=== PATIENT | female | born 1930 | race Caucasian/White ===

== ENCOUNTER 2017-05-06 09:35 | Emergency (ER) | payer BC ==
[2017-05-06 09:49] VITALS: BP 147/83; PULSE 73; TEMP 98.3; BMI 21.9
[2017-05-06 10:17] LABS: BASOPHIL 0.4 % (0-2.0); EOSINOPHIL 0.6 % (0-4.5); MCHC 32.6 g/dl (32.0-36.0); MEAN CELL VOLUME 82.7 fl (80-96); NEUTROPHILS 86.4 % (42.8-82.8); PLATELET COUNT 365 K/MM3 (134-434); RDW 14.3 % (11.6-15.6); WHITE BLOOD COUNT 11.2 K/mm3 (4.0-10.8)
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
--- NOTE | 2017-05-06 10:22 | PDOC ---
History of Present Illness - General Chief Complaint: Chest Pain Stated Complaint: chest pain Time Seen by Provider: 05/06/17 09:42 - History of Present Illness Initial Comments: 05/06/17 10:13 86 yo F with HTN, anxiety, and breast ca., who presents with chest pain. Pt. arrives via EMS following an acute episode of chest pain . She reports 15-20 minute episode of diffuse chest pain. Cannot recall character of chest pain or associated symptoms. She states that following a conversation of relocation from her current residence at an assisted living facility into a [facility] ex[facility] nursing care unit she became agitated and overwhelmed. Shortly after she began to experience chest pain. She endorses a brief episode of right hand numbness without tingling following chest pain. Also complains of transient loss of appetite. Pt. was agitated upon encounter and refused to provide further history. Past History - Past Medical History Allergies/Adverse Reactions: Allergies Allergy/AdvReac Type Severity Reaction Status Date / Time No Known Allergies Allergy Verified 02/24/16 11:52 Home Medications: Ambulatory Orders Alprazolam [Xanax] 0.5 mg PO BID #60 tablet 06/23/14 Ascorbic Acid [Vitamin C -] 500 mg PO DAILY #30 tablet 06/23/14 Aspirin [ASA -] 81 mg PO DAILY #30 tab.chew 06/23/14 Lisinopril [Prinivil] 20 mg PO DAILY #30 tablet 06/23/14 Metoprolol Succinate [Toprol XL -] 25 mg PO BID #60 tab.sr.24h 06/23/14 Pantoprazole Sodium [Protonix -] 20 mg PO DAILY #30 tablet.ec 06/23/14 Furosemide [Lasix -] 40 mg PO DAILY 02/24/16 Potassium Chloride 10 meq PO DAILY 02/24/16 Amoxicillin/Potassium Clav [Augmentin 875-125 Tablet] 1 each PO BID #10 tablet 05/06/17 Cancer: Yes (BRRAST CA,RADIATION,OLON) GI Disorders: Yes HTN: Yes - Surgical History Abdominal Surgery: Yes (TUMOR REMOVED, COLON RESECTION) - Psycho/Social/Smoking Cessation Hx Anxiety: No Suicidal Ideation: No Smoking History: Never smoked Have you smoked in the past 12 months: No Hx Alcohol Use: Yes Drug/Substance Use Hx: No Substance Use Type: Alcohol Hx Substance Use Treatment: No Review of Systems - Review of Systems Comments:: 05/06/17 10:23 GENERAL/CONSTITUTIONAL: No fever or chills. No weakness. HEAD, EYES, EARS, NOSE AND THROAT: No change in vision. No ear pain or discharge. No sore throat. CARDIOVASCULAR: + chest pain. No shortness of breath RESPIRATORY: No cough, wheezing, or hemoptysis. GASTROINTESTINAL: No nausea, vomiting, diarrhea or constipation. GENITOURINARY: No dysuria, frequency, or change in urination. MUSCULOSKELETAL: No joint or muscle swelling or pain. No neck or back pain. SKIN: No rash NEUROLOGIC: + numbness. No headache, vertigo, loss of consciousness, or change in strength. ENDOCRINE: No increased thirst. No abnormal weight change HEMATOLOGIC/LYMPHATIC: No anemia, easy bleeding, or history of blood clots. ALLERGIC/IMMUNOLOGIC: No hives or skin allergy. *Physical Exam - Vital Signs Last Vital Signs Temp Pulse Resp BP Pulse Ox 98.3 F 73 18 147/83 100 05/06/17 09:36 05/06/17 09:36 05/06/17 09:36 05/06/17 09:36 05/06/17 09:36 - Physical Exam Comments: 05/06/17 10:25 GENERAL: Awake, alert, and fully oriented, in no acute distress HEAD: No signs of trauma, normocephalic, atraumatic EYES: PERRLA, EOMI, sclera anicteric, conjunctiva clear ENT: Auricles normal inspection, hearing grossly normal, nares patent, oropharynx clear without exudates. Moist mucosa NECK: Normal ROM, supple, no lymphadenopathy, JVD, or masses LUNGS: No distress, speaks full sentences, clear to auscultation bilaterally HEART: Regular rate and rhythm, normal S1 and S2, no murmurs, rubs or gallops, peripheral pulses normal and equal bilaterally. ABDOMEN: Soft, nontender, normoactive bowel sounds. No guarding, no rebound. No masses EXTREMITIES: Normal inspection, Normal range of motion, no edema. No clubbing or cyanosis. NEUROLOGICAL: Cranial nerves II through XII grossly intact. Normal speech, normal gait, no focal sensorimotor deficits SKIN: Warm, Dry, normal turgor, no rashes or lesions noted. Heart Score/ECG Review - Electrocardiogram EKG: Normal - Age Age: >/= 65 - Risk Factors Risk Factors Heart Score: Yes Hx Hypertension Based on the list above the patient has:: 1-2 risk factors - ECG Intrepretation Rhythm: Regular Rhythm - [place]: Normal - P and NM Delta Wave(s) Present: No WPW: No - QRS Poor R Wave Progression: No Q Wave Present: No - ST and T Early Repolarization: No Non Specific ST-T Wave changes: No Flattened T Waves: No Prolonged Q-T Interval: No - ECG Impressions Normal ECG: Yes Non-specific ST Elevation: No Ischemic Changes: No ED Treatment Course - LABORATORY CBC & Chemistry Diagram: 05/06/17 10:23 05/06/17 10:23 Medical Decision Making - Medical Decision Making 05/06/17 10:26 86 yo F with h/o HTN and anxiety who presents with chest pain. Arrived EMS following 15-20 of diffuse chest pain which pt. believes was precipitated by stressful conversation. There is low suspicion of ACS/PR following normal EKG. Pt. does not endorse respiratory complaints and physical exam is unremarkable. Low suspicion for PE or pneumonia. ED course: EKG CBC, CMP, Trop Mg+ PT/INR CXR 05/06/17 13:20 CBC- 11.2 WBC CMP-20 BUN Trop-Neg UA- 3+ Leuk Est 05/06/17 13:21 No acute cardiopulmonary pathology Pt. stable and ready for discharge *DC/Admit/Observation/Transfer Diagnosis at time of Disposition: Agitation Chest pain Qualifiers: Chest pain type: unspecified Qualified Code(s): R07.9 - Chest pain, unspecified - Discharge Dispostion Disposition: HOME Condition at time of disposition: Stable - Prescriptions Prescriptions: Amoxicillin/Potassium Clav [Augmentin 875-125 Tablet] 1 each PO BID #10 tablet - Patient Instructions Printed Discharge Instructions: DI for Atypical Chest Pain Additional Instructions: Return to the emergency department immediately with ANY new, persistent or worsening symptoms. Continue any medications as previously prescribed by your physician. You should follow up with your primary doctor as soon as possible regarding today's emergency department visit. . Please make sure your doctor reviews the results of your emergency evaluation. Thank you for coming to the [facility] today for your care. It was a pleasure to see you today. Please note that your evaluation is INCOMPLETE until you follow-up with your doctor. - Attestations Physician Attestion: 05/06/17 13:23 I, Dr. Corey Cuellar, attest that this document has been prepared under my direction and personally reviewed by me in its entirety. I further attest, that it accurately reflects all work, treatment, procedures and medical decision -making performed by me.
[2017-05-06 10:34] LABS: INR 1.06 (0.82-1.09); PROTHROMBIN TIME (PATIENT) 11.9 SEC (10.2-13.0)
[2017-05-06 10:38] LABS: CPK(DFH) 32 IU/L (26-140)
[2017-05-06 10:39] LABS: ALBUMIN 3.2 g/dl (3.5-5.0); ALK PHOS 63 U/L (32-92); ANION GAP 5 (8-16); BILIRUBIN,TOTAL 0.6 mg/dl (0.2-1.0); CALCIUM 8.3 mg/dl (8.4-10.2); CO2 28 mmol/L (22-28); CREATININE 0.8 mg/dl (0.6-1.3); GLUCOSE,RANDOM 107 mg/dl (74-106); SGOT/AST 12 U/L (10-42); TOT PROT 5.7 g/dl (6.4-8.3)
[2017-05-06 11:33] LABS: TROPONIN I (DFP) < 0.03 ng/ml (0.03-0.50)
[2017-05-06 12:03] LABS: PH,URINE 5.5 (4.5-8); URINE APPEARANCE Cloudy; URINE BILIRUBIN Negative (NEGATIVE); URINE BLOOD 2+ (NEGATIVE); URINE GLUCOSE (UA) Negative (NEGATIVE); URINE KETONE Negative (NEGATIVE); URINE NITRITE Positive (NEGATIVE); URINE UROBILINOGEN 0.2 (0.2-1.0)
[2017-05-06 12:07] LABS: URINE COLOR YELLOW; URINE LEUK ESTERASE 3+ (NEGATIVE); URINE PROTEIN 1+ (NEGATIVE)
[2017-05-06 13:16] LABS: URINE BACTERIA MANY /hpf (NEGATIVE); URINE WBC >50 (3-5)
[2017-05-06 15:12] LABS: SGPT/ALT < 9 U/L (10-40)
--- NOTE | 2017-05-07 15:12 | EKG ---
Test Reason : Blood Pressure : / mmHG Vent. Rate : 065 BPM Atrial Rate : 065 BPM P-R Int : 146 ms QRS Dur : 076 ms QT Int : 446 ms P-R-T Axes : 071 074 062 degrees QTc Int : 463 ms NORMAL SINUS RHYTHM NORMAL ECG WHEN COMPARED WITH ECG OF 21-JUN-2014 08:42, NO SIGNIFICANT CHANGE WAS FOUND Confirmed by MAYRA ARANA MD ([id number]) on 05/07/2017 3:12:14 PM Referred By: TARAN LI Confirmed By:MAYRA ARNAA MD
--- NOTE | 2017-05-08 07:14 | PDOC ---
Patient Follow-up (Call Back) - Post ED Follow - Up Condition at time of discharge: Stable Disposition at time of original discharge: HOME Reason for Call Back: Abnwl. Microbiology (culture results of >100,000 gram neg bacilli from UA on 05/06. No sensitivities reported yet. Pt was started on Augmentin and is taking it as prescribed. She has no urinary complaints or fever and feels better. Dr. Deleon is also aware that she in on an abx. will continue to f/u sensitivities.)
== END 2017-05-06 11:56 | disposition home or self-care (01) ==
LOC: FER 09:35
DX: R45.1 Restlessness and agitation (principal); R07.9 Chest pain, unspecified; I10 Essential (primary) hypertension; Z85.3 Personal history of malignant neoplasm of breast
CPT/HCPCS: 36415; 71010-TC; 80053; 81003; 81015; 82550; 83735; 84484; 85025; 85610; 87086; 87186; 93005; 99283-25

== ENCOUNTER 2017-06-04 10:10 | Emergency (ER) | payer BC ==
--- NOTE | 2017-06-04 10:36 | PDOC ---
History of Present Illness - General Chief Complaint: Injury Stated Complaint: RT ELBOW,RT RIB, RT KNEE PAIN, S/P FALL Time Seen by Provider: 06/04/17 10:35 History Source: Patient Exam Limitations: Dementia - History of Present Illness Initial Comments: 06/04/17 11:00 Pt presents to the ED complaining of R elbow, R knee and R sided rib pain after mechanical fall last night. Patient is able to recall the entire incident and denies LOC. Reports that she did not hit her head. Patient was able to get herself into bed, and has been ambulatory since the incident. Denies abdominal pain or shortness of breath. Past History - Past Medical History Allergies/Adverse Reactions: Allergies Allergy/AdvReac Type Severity Reaction Status Date / Time No Known Allergies Allergy Verified 06/04/17 10:25 Home Medications: Ambulatory Orders Alprazolam [Xanax] 0.5 mg PO BID #60 tablet 06/23/14 Ascorbic Acid [Vitamin C -] 500 mg PO DAILY #30 tablet 06/23/14 Aspirin [ASA -] 81 mg PO DAILY #30 tab.chew 06/23/14 Lisinopril [Prinivil] 20 mg PO DAILY #30 tablet 06/23/14 Metoprolol Succinate [Toprol XL -] 25 mg PO BID #60 tab.sr.24h 06/23/14 Pantoprazole Sodium [Protonix -] 20 mg PO DAILY #30 tablet.ec 06/23/14 Furosemide [Lasix -] 40 mg PO DAILY 02/24/16 Potassium Chloride 10 meq PO DAILY 02/24/16 Cancer: Yes (BRRAST CA,RADIATION,OLON) GI Disorders: Yes HTN: Yes - Surgical History Abdominal Surgery: Yes (TUMOR REMOVED, COLON RESECTION) - Psycho/Social/Smoking Cessation Hx Anxiety: No Suicidal Ideation: No Smoking History: Never smoked Have you smoked in the past 12 months: No Hx Alcohol Use: Yes Drug/Substance Use Hx: No Substance Use Type: Alcohol Hx Substance Use Treatment: No Review of Systems - Review of Systems Constitutional: No: Symptoms Reported, See HPI, Chills, Diaphoresis, Fever, Loss of Appetite, Malaise, Night Sweats, Weakness, Weight Stable, Unintentional Wgt. Loss, Unexplained wgt Loss, Other HEENTM: No: Symptoms Reported, See HPI, Eye Pain, Blurred Vision, Tearing, Recent change in vision, Double Vision, Cataracts, Ear Pain, Ocular Prothesis, Ear Discharge, Nose Pain, Nose Congestion, Tinnitus, Nose Bleeding, Hearing Loss , Throat Pain, Throat Swelling, Mouth Pain, Dental Problems, Difficulty Swallowing, Mouth Swelling, Other Respiratory: No: Cough, Shortness of Breath Cardiac (ROS): Yes: Other. No: Chest Pain ABD/GI: No: Nausea, Vomiting, Indigestion Musculoskeletal: No: Back Pain, Joint Pain, Muscle Pain, Neck Pain *Physical Exam - Physical Exam General Appearance: Yes: Thin. No: Apparent Distress Neck: positive: Trachea midline, Carotid bruit. negative: Tender, Supple, Decreased range of motion, Rigidity, Tender midline Respiratory/Chest: positive: Lungs Clear, Normal Breath Sounds. negative: Chest Tender, Respiratory Distress, Rapid RR (no bruising or tenderness of chest wall), Crackles, Rales, Rhonchi, Stridor, Wheezing Cardiovascular: positive: Regular Rhythm, Regular Rate, S1, S2 Gastrointestinal/Abdominal: positive: Normal Bowel Sounds. negative: Tender, Flat, Soft, Organomegaly, Pulsatile Mass, Increased Bowel Sounds, Decreased BS, Protuberent, Distended, Guarding, Rebound, Tenderness, Hernia, Mass, Hepatomegaly, Spleenomegaly, Other Musculoskeletal: positive: Normal Inspection. negative: CVA Tenderness, CVA Tenderness (R), CVA Tenderness (L), Decreased Range of Motion, Muscle Spasm, Vertebral Tenderness, Other (full ROM with no tenderness or deformity at R elbow and knee) Extremity: positive: Normal Range of Motion Integumentary: positive: Normal Color Neurologic: positive: comfort filler II-XII NML intact, Alert, Motor Strength 5/5 Medical Decision Making - Medical Decision Making 06/04/17 11:13 Pt presents to the ED after mechanical trip and fall complaining of R elbow, R knee and R sided rib pain. No signs of head trauma, patient denies hitting her head or LOC. Will check xray to rule out fracture, likely discharge home if negative. *DC/Admit/Observation/Transfer Diagnosis at time of Disposition: Contusion of knee Qualifiers: Encounter type: initial encounter Laterality: right Qualified Code(s): S80.01XA - Contusion of right knee, initial encounter - Discharge Dispostion Disposition: HOME Condition at time of disposition: Good Admit: No - Patient Instructions Printed Discharge Instructions: DI for Knee Pain Additional Instructions: return to the ED for new or changing symptoms, especially severe pain in the knee or elbow, severe chest pain or shortness of breath. Follow up with your doctor.
[2017-06-04 10:45] VITALS: BP 133/64; PULSE 75; TEMP 98.2; BMI 19.5
== END 2017-06-04 12:05 | disposition home or self-care (01) ==
LOC: FER 10:10
DX: S80.01XA Contusion of right knee, initial encounter (principal); W18.39XA Other fall on same level, initial encounter; Y93.89 Activity, other specified; Y92.9 Unspecified place or not applicable; Z85.3 Personal history of malignant neoplasm of breast; I10 Essential (primary) hypertension; K92.9 Disease of digestive system, unspecified
CPT/HCPCS: 71010-TC; 73070-TC-RT; 73562-TC-RT; 99281-25

== ENCOUNTER 2017-09-27 09:20 | Inpatient (IN) | payer BC, OTHER ==
--- NOTE | 2017-09-27 09:21 | PDOC ---
History of Present Illness - General Chief Complaint: Hematuria Stated Complaint: BIBA HEMATURIA Time Seen by Provider: 09/27/17 09:21 - History of Present Illness Initial Comments: 09/27/17 09:48 86yo F hx uterine prolapse, HTN, HL, colon ca s/p resection, anxiety presents after an episode of hematuria this morning. Pt had recent UTI a few weeks ago and was given augmentin. Pt's aid reports urine is red with some clots. Pt has not complaints, denies dysuria, frequency, abd pain, fevers, chills. AId also reports patient has been increasingly confused over the last week and was agitated when EMS arrived today which is unlike her. No CP, SOB, headache, focal weakness or numbness, LE edema. Past History - Past Medical History Allergies/Adverse Reactions: Allergies Allergy/AdvReac Type Severity Reaction Status Date / Time No Known Allergies Allergy Verified 09/27/17 09:22 Home Medications: Ambulatory Orders Aspirin [ASA -] 81 mg PO DAILY #30 tab.chew 06/23/14 Lisinopril [Prinivil] 20 mg PO DAILY #30 tablet 06/23/14 Metoprolol Succinate [Toprol XL -] 25 mg PO BID #60 tab.sr.24h 06/23/14 Cyanocobalamin [Vitamin B12 -] 1,000 mcg PO DAILY 08/20/17 Levothyroxine [Synthroid -] 50 mcg PO DAILY 08/20/17 Mirtazapine 15 mg PO HS 08/20/17 Acetaminophen [Tylenol -] 500 mg PO TID 09/27/17 Amoxicillin/Potassium Clav [Augmentin 875-125 Tablet] 1 each PO BID 09/27/17 Docusate Sodium [Colace -] 100 mg PO HS 09/27/17 Ergocalciferol (Vitamin D2) [Vitamin D2] 50,000 unit PO WEEKLY 09/27/17 Furosemide 20 mg PO Q48H 09/27/17 Olanzapine 5 mg PO BID 09/27/17 Olanzapine Zydis [Zyprexa Zydis -] 5 mg PO Q8H PRN 09/27/17 Polyethylene Glycol 3350 [Miralax (For Daily Use) -] 17 gm PO DAILY 09/27/17 Cancer: Yes (BREAST CA,RADIATION,OLON) COPD: No GI Disorders: Yes Disorders: Yes (UTERINE PROLAPSE, CYSTOCELE) HTN: Yes Psychiatric Problems: Yes (ANXIETY) Seizures: Yes (HYPOTHYROID) - Surgical History Abdominal Surgery: Yes (TUMOR REMOVED, COLON RESECTION) - Suicide/Smoking/Psychosocial Hx Smoking History: Never smoked Have you smoked in the past 12 months: No Hx Alcohol Use: No Drug/Substance Use Hx: No Substance Use Type: Alcohol Hx Substance Use Treatment: No Review of Systems - Review of Systems Comments:: 09/27/17 09:51 GENERAL/CONSTITUTIONAL: No fever or chills. No weakness. +confusion HEAD, EYES, EARS, NOSE AND THROAT: No change in vision. No ear pain or discharge. No sore throat. GASTROINTESTINAL: No nausea, vomiting, diarrhea or constipation. GENITOURINARY: No dysuria, frequency, or change in urination. +hematuria CARDIOVASCULAR: No chest pain or shortness of breath. RESPIRATORY: No cough, wheezing, or hemoptysis. MUSCULOSKELETAL: No joint or muscle swelling or pain. No neck or back pain. SKIN: No rash NEUROLOGIC: No headache, vertigo, loss of consciousness, or change in strength/ sensation. ENDOCRINE: No increased thirst. No abnormal weight change. HEMATOLOGIC/LYMPHATIC: No anemia, easy bleeding, or history of blood clots. ALLERGIC/IMMUNOLOGIC: No hives or skin allergy. *Physical Exam - Physical Exam Comments: 09/27/17 09:54 GENERAL: Awake, alert, in no acute distress HEAD: No signs of trauma EYES: PERRLA, EOMI, sclera anicteric, conjunctiva clear ENT: Auricles normal inspection, hearing grossly normal, nares patent, oropharynx clear without exudates. Moist mucosa NECK: Normal ROM, supple, no lymphadenopathy, JVD, or masses LUNGS: Breath sounds equal, clear to auscultation bilaterally. No wheezes, and no crackles HEART: Regular rate and rhythm, normal S1 and S2, no murmurs, rubs or gallops ABDOMEN: Soft, nontender, normoactive bowel sounds. No guarding, no rebound. No masses. No CVAT : +uterine prolapse, +bright red blood from mauro catheter with some clots EXTREMITIES: Normal range of motion, no edema. No clubbing or cyanosis. No cords, erythema, or tenderness NEUROLOGICAL: Normal speech, cranial nerves grossly intact, negative pronator drift, 5/5 strength in all 4 extremities, normal sensation to light touch in all 4 extremities, normal cerebellar exam SKIN: Warm, Dry, normal turgor, no rashes or lesions noted. ED Treatment Course - LABORATORY CBC & Chemistry Diagram: 09/27/17 10:00 09/27/17 10:00 Medical Decision Making - Medical Decision Making 09/27/17 10:17 86-year-old female presents with painless gross hematuria with clots. Differential includes hemorrhagic cystitis versus malignancy. Blood pressure is a touch low (96/70) in the emergency department concerning for clinical anemia. Since patient's aide also reports a change in mental status over the last week, will obtain CT scan of her head. Plan: -labs -bladder US -CTH -discuss with Dr. Deleon 09/27/17 11:32 Labs remarkable for leukocytosis to 18 with a neutrophil predominance. Creatinine is also up to 1.7 with BUNs in the 60s consistent with acute renal failure as the patient's previous creatinines are within normal limits. Her potassium is up to 5.6 likely secondary to her acute renal failure. CT scan of the head is negative for acute pathology. Her urinalysis was unable to be analyzed due to the gross hematuria however given the recent diagnosis of UTI over the weekend and covered with Augmentin at that point, I did broaden her coverage to ceftriaxone at this time. I reviewed the patient's previous microbiology and found that she has only had pansensitive Klebsiella in the past in our system. I discussed the case with her PMD Dr. Deleon and the patient will be admitted for further workup and management of her hematuria. She is currently pending an ultrasound of the bladder. Since the patient's bladder must be full for the ultrasound, we have clamped her Mauro for now and will give her a 500 mL bolus to allow filling of her bladder for the study. 09/27/17 14:37 Case discussed in detail with admitting physician Dr. Deleon including history , physical exam and ancillary studies. Admitting physician has assumed care for the patient, will follow all pending diagnostics and will complete the evaluation and treatment. *DC/Admit/Observation/Transfer Diagnosis at time of Disposition: Hematuria - Discharge Dispostion Condition at time of disposition: Stable Admit: Yes - Referrals - Patient Instructions - Post Discharge Activity - Attestations Physician Attestion: 09/27/17 11:35 I, Dr. Tirso Hall MD, attest that this document has been prepared under my direction and personally reviewed by me in its entirety. I further attest, that it accurately reflects all work, treatment, procedures and medical decision -making performed by me.
[2017-09-27 10:32] LABS: URINE APPEARANCE CLOUDY; URINE COLOR RED
[2017-09-27 10:41] LABS: ACTIVATED PTT 25.8 SECONDS (24.0-38.9)
[2017-09-27 10:42] LABS: ALK PHOS 62 U/L (32-92); ANION GAP 7 (8-16); BILIRUBIN,TOTAL 0.3 mg/dl (0.2-1.0); CALCIUM 8.6 mg/dl (8.4-10.2); CO2 22 mmol/L (22-28); CREATININE 1.7 mg/dl (0.6-1.3); GLUCOSE,RANDOM 109 mg/dl (74-106); MAGNESIUM 2.3 mg/dL (1.8-2.4); SGOT/AST 8 U/L (10-42); TOT PROT 6.3 g/dl (6.4-8.3)
[2017-09-27 10:44] LABS: MCH 27.3 pg (25.7-33.7); MCHC 32.9 g/dl (32.0-36.0); MEAN PLT VOLUME 9.6 fl (7.5-11.1); PLATELET COUNT 430 K/MM3 (134-434); RDW 15.8 % (11.6-15.6); WHITE BLOOD COUNT 17.8 K/mm3 (4.0-10.8)
[2017-09-27 10:45] LABS: INR 1.14 (0.82-1.09); PROTHROMBIN TIME (PATIENT) 12.7 SEC (10.2-13.0)
[2017-09-27 10:55] LABS: URINE RBC >100 /hpf (0-3)
[2017-09-27 10:57] LABS: SGPT/ALT 3 U/L (10-40)
[2017-09-27 11:23] LABS: PLATELET ESTIMATE ADEQUATE
[2017-09-27] MEDS ORDERED: CEFTRIAXONE 1 GM in DEXTROSE 5%-WATER - 50 ML IVPB ONE (11:29)
[2017-09-27] MEDS ORDERED: cefTRIAXone SODIUM 1 GM VIAL ONE (11:34)
[2017-09-27] MEDS ORDERED: SODIUM CHLORIDE 0.9% 1000 ML INFUS.BAG IV ONE (15:15)
--- NOTE | 2017-09-27 18:01 | CON.GU ---
Consult Consult Specialty:: Referred by:: medicine Reason for Consultation:: gross hematuria - History of Present Illness Chief Complaint: gross hematuria History of Present Illness: 86yo F hx uterine prolapse, HTN, HL, colon ca s/p resection, anxiety presents after an episode of hematuria this morning. Pt had recent UTI a few weeks ago and was given augmentin. Pt's aid reports urine is red with some clots. Pt has not complaints, denies dysuria, frequency, abd pain, fevers, chills. AId also reports patient has been increasingly confused over the last week and was agitated when EMS arrived today which is unlike her. No CP, SOB, headache, focal weakness or numbness, LE edema. Patient is unable to give any further history - History Source History Provided By: Medical Record Limitations to Obtaining History: Dementia - Past Medical History ASSISTANT STORE DIRECTOR: Yes: Dementia Cardio/Vascular: Yes: HTN Renal/: Yes: UTI. No: Renal Failure, Renal Inusuff, BPH, Cancer, Hematuria, Hemodialysis, Neurogenic Bladder, Renal Calculi, Other - Past Surgical History Past Surgical History: Yes: Breast Biopsy (lumpectomy and rt in 1995), Colectomy (partial colectomy in 1983 for carcinoma) - Alcohol/Substance Use Hx Alcohol Use: No - Smoking History Smoking history: Never smoked Have you smoked in the past 12 months: No Home Medications - Allergies Allergies/Adverse Reactions: Allergies Allergy/AdvReac Type Severity Reaction Status Date / Time No Known Allergies Allergy Verified 09/27/17 09:22 - Home Medications Home Medications: Ambulatory Orders Aspirin [ASA -] 81 mg PO DAILY #30 tab.chew 06/23/14 Lisinopril [Prinivil] 20 mg PO DAILY #30 tablet 06/23/14 Metoprolol Succinate [Toprol XL -] 25 mg PO BID #60 tab.sr.24h 06/23/14 Cyanocobalamin [Vitamin B12 -] 1,000 mcg PO DAILY 08/20/17 Levothyroxine [Synthroid -] 50 mcg PO DAILY 08/20/17 Mirtazapine 15 mg PO HS 08/20/17 Acetaminophen [Tylenol -] 500 mg PO TID 09/27/17 Amoxicillin/Potassium Clav [Augmentin 875-125 Tablet] 1 each PO BID 09/27/17 Docusate Sodium [Colace -] 100 mg PO HS 09/27/17 Ergocalciferol (Vitamin D2) [Vitamin D2] 50,000 unit PO WEEKLY 09/27/17 Furosemide 20 mg PO Q48H 09/27/17 Olanzapine 5 mg PO BID 09/27/17 Olanzapine Zydis [Zyprexa Zydis -] 5 mg PO Q8H PRN 09/27/17 Polyethylene Glycol 3350 [Miralax (For Daily Use) -] 17 gm PO DAILY 09/27/17 Review of Systems - Review of Systems Genitourinary: reports: Hematuria Physical Exam- Vital Signs: Vital Signs Temperature 99.2 F 09/27/17 17:56 Pulse Rate 60 09/27/17 17:56 Respiratory Rate 18 09/27/17 17:56 Blood Pressure 114/55 09/27/17 17:56 O2 Sat by Pulse Oximetry (%) 97 09/27/17 17:56 Gastrointestinal: Yes: Soft Renal/: No: Bladder Distention, CVA Tenderness - Left, CVA Tenderness - Right , Zamora Present Labs: CBC, BMP 09/27/17 10:00 09/27/17 10:00 Imaging - Results Ultrasound: Report Reviewed Problem List - Problems (1) Gross hematuria Assessment/Plan: US is normal. Urine culture is pending. hydration. if it presists will need cystoscopy Code(s): R31.0 - GROSS HEMATURIA
[2017-09-27 18:24] VITALS: BMI 16.2
--- NOTE | 2017-09-27 18:50 | HP ---
Admitting History and Physical - Admission Chief Complaint: fall at the [facility] and hematuria History of Present Illness: 86 yo female who is known to me from the community sustained a second fall in 1 week span. The patient had her medication changed recently and was started on Zyprexa and Remeron at night. In ER she was found to have gross hematuria. The patient has history of colon cancer s/p resection. There is no recent Ct scan to monitor any possible recurrence and the patient is very resistant about having any colonoscopies being done. Despite resistance to investigations, upon my inquiry, she confirmed that she would like to be resuscitated History Source: Medical Record, Transfer Record Limitations to Obtaining History: Clinical Condition - Past Medical History DIRECTOR OF MARKET ANALYSIS: Yes: Dementia Cardiovascular: Yes: HTN Gastrointestinal: Yes: Other (hemorrhoidal disease) Renal/: Yes: UTI, Other (uterine prolapse). No: Renal Failure, Renal Inusuff , BPH, Cancer, Hematuria, Hemodialysis, Neurogenic Bladder, Renal Calculi ...: No Psych: Yes: Anxiety - Past Surgical History Past Surgical History: Yes: Breast Biopsy (lumpectomy and rt in 1995), Colectomy (partial colectomy in 1983 for carcinoma) - Smoking History Smoking history: Never smoked Have you smoked in the past 12 months: No - Alcohol/Substance Use Hx Alcohol Use: No - Social History Usual Living Arrangement: Yes: Assisted Living Home Medications - Allergies Allergies/Adverse Reactions: Allergies Allergy/AdvReac Type Severity Reaction Status Date / Time No Known Allergies Allergy Verified 09/27/17 09:22 - Home Medications Home Medications: Ambulatory Orders Aspirin [ASA -] 81 mg PO DAILY #30 tab.chew 06/23/14 Lisinopril [Prinivil] 20 mg PO DAILY #30 tablet 06/23/14 Metoprolol Succinate [Toprol XL -] 25 mg PO BID #60 tab.sr.24h 06/23/14 Cyanocobalamin [Vitamin B12 -] 1,000 mcg PO DAILY 08/20/17 Levothyroxine [Synthroid -] 50 mcg PO DAILY 08/20/17 Mirtazapine 15 mg PO HS 08/20/17 Acetaminophen [Tylenol -] 500 mg PO TID 09/27/17 Amoxicillin/Potassium Clav [Augmentin 875-125 Tablet] 1 each PO BID 09/27/17 Docusate Sodium [Colace -] 100 mg PO HS 09/27/17 Ergocalciferol (Vitamin D2) [Vitamin D2] 50,000 unit PO WEEKLY 09/27/17 Furosemide 20 mg PO Q48H 09/27/17 Olanzapine 5 mg PO BID 09/27/17 Olanzapine Zydis [Zyprexa Zydis -] 5 mg PO Q8H PRN 09/27/17 Polyethylene Glycol 3350 [Miralax (For Daily Use) -] 17 gm PO DAILY 09/27/17 Review of Systems - Review of Systems Constitutional: reports: Lethargy, Weakness, Other (slurred speach) Eyes: reports: No Symptoms HENT: reports: No Symptoms Neck: reports: No Symptoms Cardiovascular: reports: No Symptoms Respiratory: reports: No Symptoms Gastrointestinal: denies: Abdominal Pain, Bloating, Constipation Genitourinary: reports: Hematuria Breasts: reports: No Symptoms Reported Integumentary: reports: No Symptoms Psychiatric: reports: Anxiety Physical Examination Vital Signs: Vital Signs Temperature 99.2 F 09/27/17 17:56 Pulse Rate 60 09/27/17 17:56 Respiratory Rate 18 09/27/17 18:06 Blood Pressure 114/55 09/27/17 17:56 O2 Sat by Pulse Oximetry (%) 97 09/27/17 18:06 Constitutional: Yes: Calm Eyes: Yes: Conjunctiva Clear, EOM Intact HENT: Yes: Atraumatic, Normocephalic Neck: Yes: Supple, Trachea Midline Cardiovascular: Yes: Regular Rate and Rhythm, S1, S2 Respiratory: Yes: Regular, CTA Bilaterally Gastrointestinal: Yes: Normal Bowel Sounds, Soft, Hemorrhoids. No: Hepatomegaly , Splenomegaly ...Rectal Exam: Yes: Hemorrhoids/External Breast(s): Yes: WNL Extremities: Yes: WNL. No: Calf Tenderness Edema: No Peripheral Pulses WNL: Yes Neurological: Yes: Alert, Oriented Psychiatric: Yes: Alert, Oriented Labs: CBC, BMP 09/27/17 10:00 09/27/17 10:00 Imaging - Results Cat Scan: Other (No Ct evidence of intracranial pathology) Other: Other (bladder US: thickening of danyell bladder posterior wall, hydronephrosis of the left kidney, small left kidney cyst) Problem List - Problems (1) Gross hematuria Assessment/Plan: CBC every 8 hours, hold Aspirin, type and cross match, transfuse if necessary Code(s): R31.0 - GROSS HEMATURIA (2) Orthostatic hypotension Assessment/Plan: continue iv fluids gentle hydration Code(s): I95.1 - ORTHOSTATIC HYPOTENSION (3) Other fall on same level, initial encounter Code(s): W18.39XA - OTHER FALL ON SAME LEVEL, INITIAL ENCOUNTER (4) Fall Assessment/Plan: monitor blood pressure Code(s): W19.XXXA - UNSPECIFIED FALL, INITIAL ENCOUNTER Qualifiers: Encounter type: initial encounter Qualified Code(s): W19.XXXA - Unspecified fall, initial encounter (5) HTN (hypertension) Assessment/Plan: continue Lisinopril hold LAsix Code(s): I10 - ESSENTIAL (PRIMARY) HYPERTENSION (6) Hypothyroidism Assessment/Plan: continue Synthroid Code(s): E03.9 - HYPOTHYROIDISM, UNSPECIFIED (7) UTI (urinary tract infection) Assessment/Plan: Ceftriaxone 1 gm iv daily Code(s): N39.0 - URINARY TRACT INFECTION, SITE NOT SPECIFIED
[2017-09-27] MEDS: MIRTAZAPINE 15 MG TABLET (FP) PO SCH (22:16)
[2017-09-27] MEDS: DEXTROSE 5%-0.45% SALINE 1,000 ML IV SCH (22:22)
[2017-09-28] MEDS: LEVOTHYROXINE NA 50 MCG TABLET (FP) PO SCH (06:25)
[2017-09-28 08:21] LABS: BASO % 0.5 % (0-2.0); EOS % 1.9 % (0-4.5); MCHC 32.4 g/dl (32.0-36.0); MEAN CELL VOLUME 83.5 fl (80-96); MEAN PLT VOLUME 9.1 fl (7.5-11.1); NEUT % 86.4 % (42.8-82.8); PLATELET COUNT 412 K/MM3 (134-434); RDW 15.9 % (11.6-15.6); WHITE BLOOD COUNT 13.7 K/mm3 (4.0-10.8)
[2017-09-28 08:36] LABS: ALBUMIN 2.7 g/dl (3.5-5.0); ALK PHOS 53 U/L (32-92); ANION GAP 5 (8-16); CALCIUM 8.2 mg/dl (8.4-10.2); CO2 23 mmol/L (22-28); CREATININE 1.1 mg/dl (0.6-1.3); GLUCOSE,RANDOM 106 mg/dl (74-106); TOT PROT 5.5 g/dl (6.4-8.3)
--- NOTE | 2017-09-28 09:32 | EKG ---
Test Reason : Blood Pressure : / mmHG Vent. Rate : 058 BPM Atrial Rate : 058 BPM P-R Int : 154 ms QRS Dur : 080 ms QT Int : 422 ms P-R-T Axes : 075 052 064 degrees QTc Int : 414 ms SINUS BRADYCARDIA OTHERWISE NORMAL ECG WHEN COMPARED WITH ECG OF 06-MAY-2017 09:51, NON-SPECIFIC CHANGE IN ST SEGMENT IN LATERAL LEADS Confirmed by MAYRA ARANA MD ([id number]) on 09/28/2017 9:32:14 AM Referred By: SOPHY ECHAVARRIA Confirmed By:MAYRA ARANA MD
[2017-09-28] MEDS ORDERED: CEFTRIAXONE 1 GM in DEXTROSE 5%-WATER - 100 ML IVPB SCH (10:00)
[2017-09-28] MEDS: METOPROLOL SUCCINATE 25 MG TAB.SR.24H (FP) PO SCH (10:35)
[2017-09-28] MEDS: CEFTRIAXONE 1 G/50 ML PREMIX 50 ML IVPB SCH (10:36)
[2017-09-28 17:19] LABS: BILIRUBIN,TOTAL 0.3 mg/dl (0.2-1.0); SGOT/AST 6 U/L (10-42); SGPT/ALT 2 U/L (10-40)
--- NOTE | 2017-09-28 17:32 | CON.PSY ---
Psychiatry Consult Chief Complaint: Asked to see this patient an 86 year old female adm. for hematuria and s/p Fall. History of Present Problem: RN input received PCP history appreciated. Medical records, labs and dx work up seen PCP reports that patient has had a sleep problem and her psychiatrist prescribed zyprexa and remeron was increased from 7.5 mgs to15 mgs She sustained a fall and was found to be orthostatic. Since Zyprexa can cause increased sedation and orthostatic hypotension, this medication was discontinued during this hospitalization. Rn reports that patient is not sleeping at nights and is at times agitated. Poor appetite also reported. - Current Medications Current Medications: Active Medications Dextrose/Sodium Chloride (D5-1/2ns -) 1,000 mls @ 42 mls/hr IV ASDIR [facility] Last Admin: 09/27/17 22:22 Dose: 42 mls/hr CEFTRIAXONE 1 G/50 ML PREMIX (Ceftriaxone 1 Gm-D5w Bag) 50 mls @ 100 mls/hr IVPB DAILY [facility] Last Admin: 09/28/17 10:36 Dose: 100 mls/hr Levothyroxine Sodium (Synthroid -) 50 mcg PO DAILY@0700 [facility] Last Admin: 09/28/17 06:25 Dose: 50 mcg Metoprolol Succinate (Toprol Xl -) 25 mg PO DAILY [facility] Last Admin: 09/28/17 10:35 Dose: 25 mg Mirtazapine (Remeron -) 15 mg PO HS [facility] Last Admin: 09/27/17 22:16 Dose: 15 mg - Allergies Allergies: Allergies Allergy/AdvReac Type Severity Reaction Status Date / Time No Known Allergies Allergy Verified 09/27/17 09:22 - Current Mental Status Evaluation Attitude: Uncooperative - Affect Affect: Labile - Mood Mood: Other (neutral) - Speech/Language Receptive: Unable to Receive/Comprehend Spoken Words - Psychomotor Activity Psychomotor Activity: Normal - Thought Process Thought Process: Circumstantial, Loosening of Associations - Thought Content Hallucinations: Absent Delusions: Absent - Self Perception Self Perception: No Impairment - Cognition Attention: Diminished Memory, Immediate Recall: Impaired (Further testing not done due to her state of confusion) Assessment/Plan Patient could not participate with this assessment due to her mental status She is confused and oriented to self only. She is disoriented to time, place and situation. She believes she is at a friend's house. AP Rule out Delirium with underlying Dementia Poor Sleep Agitation and behavioral problems Agree to stop zyprexa Patient may benefit from short term use of short acting benzo while hospitalized for anxiety and to help in sleep induction. Continue remeron at 15 mgs q hs add xanax .5 mgs tid prn
--- NOTE | 2017-09-28 17:46 | PN ---
Progress Note, Physician Chief Complaint: hematuria persisting, dark " merlot" like colored urine patient has extremely poor appetite - Current Medication List Current Medications: Active Medications Alprazolam (Xanax -) 0.5 mg PO Q8H PRN PRN Reason: ANXIETY Dextrose/Sodium Chloride (D5-1/2ns -) 1,000 mls @ 42 mls/hr IV ASDIR [facility] Last Admin: 09/27/17 22:22 Dose: 42 mls/hr CEFTRIAXONE 1 G/50 ML PREMIX (Ceftriaxone 1 Gm-D5w Bag) 50 mls @ 100 mls/hr IVPB DAILY [facility] Last Admin: 09/28/17 10:36 Dose: 100 mls/hr Levothyroxine Sodium (Synthroid -) 50 mcg PO DAILY@0700 [facility] Last Admin: 09/28/17 06:25 Dose: 50 mcg Metoprolol Succinate (Toprol Xl -) 25 mg PO DAILY [facility] Last Admin: 09/28/17 10:35 Dose: 25 mg Mirtazapine (Remeron -) 15 mg PO HS [facility] Last Admin: 09/27/17 22:16 Dose: 15 mg - Objective Vital Signs: Vital Signs Temperature 97.7 F 09/28/17 14:28 Pulse Rate 55 L 09/28/17 14:28 Respiratory Rate 16 09/28/17 14:28 Blood Pressure 97/54 09/28/17 14:28 O2 Sat by Pulse Oximetry (%) 95 09/28/17 14:28 Constitutional: Yes: No Distress, Calm, Pallor Eyes: Yes: Conjunctiva Clear HENT: Yes: Atraumatic, Normocephalic Neck: Yes: Supple, Trachea Midline Cardiovascular: Yes: Regular Rate and Rhythm Respiratory: Yes: Regular, CTA Bilaterally Gastrointestinal: Yes: Normal Bowel Sounds, Soft, Other (umbilical hernia) ...Rectal Exam: Yes: Deferred Musculoskeletal: Yes: Muscle Weakness Extremities: No: Calf Tenderness Edema: Yes Peripheral Pulses WNL: Yes Neurological: Yes: Alert. No: Oriented (not oriented for place) Psychiatric: Yes: Alert Labs: CBC, BMP 09/28/17 07:30 09/28/17 07:30 INR, PTT INR 1.14 (0.82-1.09) 09/27/17 10:00 Problem List - Problems (1) Gross hematuria Assessment/Plan: continue monitoring CBC type and cross match, transfuse if necessary Code(s): R31.0 - GROSS HEMATURIA (2) Orthostatic hypotension Assessment/Plan: continue iv fluids gentle hydration Code(s): I95.1 - ORTHOSTATIC HYPOTENSION (3) Other fall on same level, initial encounter Code(s): W18.39XA - OTHER FALL ON SAME LEVEL, INITIAL ENCOUNTER (4) HTN (hypertension) Assessment/Plan: continue Lisinopril hold LAsix Code(s): I10 - ESSENTIAL (PRIMARY) HYPERTENSION (5) Hypothyroidism Code(s): E03.9 - HYPOTHYROIDISM, UNSPECIFIED (6) UTI (urinary tract infection) Code(s): N39.0 - URINARY TRACT INFECTION, SITE NOT SPECIFIED
[2017-09-28 18:16] LABS: BASO % 0.3 % (0-2.0); EOS % 1.2 % (0-4.5); MCH 27.2 pg (25.7-33.7); MCHC 32.3 g/dl (32.0-36.0); MEAN CELL VOLUME 84.2 fl (80-96); NEUT % 87.4 % (42.8-82.8); PLATELET COUNT 450 K/MM3 (134-434); WHITE BLOOD COUNT 16.1 K/mm3 (4.0-10.8)
[2017-09-28] MEDS: ALPRAZolam 0.25 MG TABLET PO PRN (21:17)
[2017-09-28] MEDS: MIRTAZAPINE 15 MG TABLET (FP) PO SCH (21:17)
[2017-09-29] MEDS: LEVOTHYROXINE NA 50 MCG TABLET (FP) PO SCH (06:10)
[2017-09-29] MEDS: DEXTROSE 5%-0.45% SALINE 1,000 ML IV SCH (06:11)
[2017-09-29 09:23] LABS: MCHC 34.3 g/dl (32.0-36.0); MEAN CELL VOLUME 84.4 fl (80-96); MEAN PLT VOLUME 9.1 fl (7.5-11.1); NEUT % 82.7 % (42.8-82.8); PLATELET COUNT 407 K/MM3 (134-434); RDW 15.4 % (11.6-15.6); WHITE BLOOD COUNT 17.2 K/mm3 (4.0-10.8)
[2017-09-29] MEDS ORDERED: MELATONIN 5 MG TABLETS PO PRN (09:28)
--- NOTE | 2017-09-29 09:38 | PN ---
Progress Note, Physician Chief Complaint: The hematuria continues and the patient is comfortable otherwise, slightly confused in the mornings and more alert in the afternoon hematuria is persisting, with dark " merlot" like colored urine patient has extremely poor appetite - Current Medication List Current Medications: Active Medications Alprazolam (Xanax -) 0.5 mg PO Q8H PRN PRN Reason: ANXIETY Last Admin: 09/28/17 21:17 Dose: 0.5 mg Dextrose/Sodium Chloride (D5-1/2ns -) 1,000 mls @ 42 mls/hr IV ASDIR [facility] Last Admin: 09/29/17 06:11 Dose: 42 mls/hr CEFTRIAXONE 1 G/50 ML PREMIX (Ceftriaxone 1 Gm-D5w Bag) 50 mls @ 100 mls/hr IVPB DAILY [facility] Last Admin: 09/28/17 10:36 Dose: 100 mls/hr Levothyroxine Sodium (Synthroid -) 50 mcg PO DAILY@0700 [facility] Last Admin: 09/29/17 06:10 Dose: 50 mcg Melatonin (Melatonin) 5 mg PO HS PRN PRN Reason: INSOMNIA Metoprolol Succinate (Toprol Xl -) 25 mg PO DAILY [facility] Last Admin: 09/28/17 10:35 Dose: 25 mg Mirtazapine (Remeron -) 7.5 mg PO HS [facility] - Objective Vital Signs: Vital Signs Temperature 97.4 F L 09/29/17 06:26 Pulse Rate 57 L 09/29/17 06:26 Respiratory Rate 19 09/29/17 06:26 Blood Pressure 122/57 09/29/17 06:26 O2 Sat by Pulse Oximetry (%) 100 09/29/17 06:26 Constitutional: Yes: No Distress, Calm Eyes: Yes: Conjunctiva Clear, EOM Intact HENT: Yes: Atraumatic, Normocephalic Neck: Yes: Supple, Trachea Midline Cardiovascular: Yes: Regular Rate and Rhythm, S1, S2 Respiratory: Yes: Regular, CTA Bilaterally Gastrointestinal: Yes: Normal Bowel Sounds, Soft, Abdomen, Obese. No: Hepatomegaly, Splenomegaly Extremities: No: Calf Tenderness Edema: No Peripheral Pulses WNL: Yes Integumentary: Yes: WNL Neurological: Yes: Alert, Oriented Psychiatric: Yes: Alert, Oriented Labs: CBC, BMP 09/29/17 07:30 09/28/17 07:30 INR, PTT INR 1.14 (0.82-1.09) 09/27/17 10:00 Problem List - Problems (1) Gross hematuria Assessment/Plan: continue monitoring CBC type and cross match, transfuse if necessary Code(s): R31.0 - GROSS HEMATURIA (2) Orthostatic hypotension Assessment/Plan: continue iv fluids gentle hydration Code(s): I95.1 - ORTHOSTATIC HYPOTENSION (3) Other fall on same level, initial encounter Code(s): W18.39XA - OTHER FALL ON SAME LEVEL, INITIAL ENCOUNTER (4) Fall Assessment/Plan: monitor blood pressure Code(s): W19.XXXA - UNSPECIFIED FALL, INITIAL ENCOUNTER Qualifiers: Encounter type: initial encounter Qualified Code(s): W19.XXXA - Unspecified fall, initial encounter (5) HTN (hypertension) Assessment/Plan: continue Lisinopril hold LAsix Code(s): I10 - ESSENTIAL (PRIMARY) HYPERTENSION (6) Hypothyroidism Assessment/Plan: continue Synthroid Code(s): E03.9 - HYPOTHYROIDISM, UNSPECIFIED (7) UTI (urinary tract infection) Assessment/Plan: Ceftriaxone 1 gm iv daily Code(s): N39.0 - URINARY TRACT INFECTION, SITE NOT SPECIFIED
[2017-09-29] MEDS: METOPROLOL SUCCINATE 25 MG TAB.SR.24H (FP) PO SCH (10:09)
[2017-09-29] MEDS: CEFTRIAXONE 1 G/50 ML PREMIX 50 ML IVPB SCH (10:09)
--- NOTE | 2017-09-29 12:05 | PROC ---
Procedure Note Procedure: 86 yo female with hematuria, haylee clots. Going for cysto tomorrow. Asked by Dr. Brenner to place her on CBI. 18 Fr 3-way mauro inserted. Balloon inflated with 30cc NS Using a tumi syringe, bladder cleared of all clots CBI started. Tolerated procedure well.
[2017-09-29] MEDS: ALPRAZolam 0.25 MG TABLET PO PRN ×2 (13:18→22:57)
[2017-09-29] MEDS: MIRTAZAPINE 15 MG TABLET (FP) PO SCH (22:56)
[2017-09-29] MEDS ORDERED: LORazepam 2 MG/ML SDV VIAL IVPUSH ONE (23:15)
[2017-09-30] MEDS ORDERED: LIDOCAINE HCL 2% JELLY 10 ML CARTRIDGE ONE (07:18)
[2017-09-30] MEDS ORDERED: MIDAZOLAM HCL 2 MG/2 ML SINGLE DOSE VIAL ONE (07:35)
[2017-09-30] MEDS ORDERED: PROPOFOL 20 ML ONE (07:35)
[2017-09-30] MEDS ORDERED: LIDOCAINE HCL 2% JELLY 10 ML CARTRIDGE TP ONE (07:45)
[2017-09-30] MEDS ORDERED: ONDANSETRON 4 MG/2 ML VIAL IVPUSH PRN (08:12)
[2017-09-30] MEDS ORDERED: oxyCODONE HCL 5 MG TABLET PO PRN (08:12)
[2017-09-30] MEDS ORDERED: PROMETHAZINE HCL 25 MG/1 ML VIAL IVPUSH PRN (08:12)
--- NOTE | 2017-09-30 08:14 | OP ---
Operative Note - Note: Operative Date: 09/30/17 Pre-Operative Diagnosis: gross hematuria Operation: cysotscopy, bladder biopsy and fulguration Findings: erythematous bladder mucosa. cellules and diverticula. urethral caruncle, grade 4 cystocele Post-Operative Diagnosis: Same as Pre-op Surgeon: Naresh Brenner Anesthesia: Fractional Specimens Removed: bladder biopsy Estimated Blood Loss (mls): 0 Drains & Tubes with Location: [address] Operative Report Dictated: Yes
[2017-09-30] MEDS: LEVOTHYROXINE NA 50 MCG TABLET (FP) PO SCH (11:09)
[2017-09-30] MEDS: CEFTRIAXONE 1 G/50 ML PREMIX 50 ML IVPB SCH (11:10)
[2017-09-30] MEDS: METOPROLOL SUCCINATE 25 MG TAB.SR.24H (FP) PO SCH (11:15)
[2017-09-30] MEDS: ALPRAZolam 0.25 MG TABLET PO PRN (20:02)
--- NOTE | 2017-09-30 20:08 | PN ---
Progress Note, Physician Chief Complaint: The patient had cystoscopy today. She tolerated the procedure well, and now she is alert and oriented and requests to eat Pizza. - Current Medication List Current Medications: Active Medications Alprazolam (Xanax -) 0.5 mg PO Q8H PRN PRN Reason: ANXIETY Last Admin: 09/30/17 20:02 Dose: 0.5 mg Fentanyl (Sublimaze Injection -) 25 mcg IVPUSH [id number] PRN PRN Reason: PAIN Dextrose/Sodium Chloride (D5-1/2ns -) 1,000 mls @ 42 mls/hr IV ASDIR [facility] Last Admin: 09/29/17 06:11 Dose: 42 mls/hr CEFTRIAXONE 1 G/50 ML PREMIX (Ceftriaxone 1 Gm-D5w Bag) 50 mls @ 100 mls/hr IVPB DAILY [facility] Last Admin: 09/30/17 11:10 Dose: 100 mls/hr Levothyroxine Sodium (Synthroid -) 50 mcg PO DAILY@0700 [facility] Last Admin: 09/30/17 11:09 Dose: Not Given Melatonin (Melatonin) 5 mg PO HS PRN PRN Reason: INSOMNIA Metoprolol Succinate (Toprol Xl -) 25 mg PO DAILY [facility] Last Admin: 09/30/17 11:15 Dose: Not Given Mirtazapine (Remeron -) 7.5 mg PO HS [facility] Last Admin: 09/29/17 22:56 Dose: Not Given Ondansetron HCl (Zofran Injection) 4 mg IVPUSH Q6H PRN PRN Reason: NAUSEA AND/OR VOMITING Oxycodone HCl (Roxicodone -) 5 mg PO Q4H PRN PRN Reason: MILD PAIN Stop: 10/01/17 08:11 Promethazine HCl (Phenergan Injection -) 12.5 mg IVPUSH Q6H PRN PRN Reason: NAUSEA-FOR RESCUE AFTER 15 MIN - Objective Vital Signs: Vital Signs Temperature 97.9 F 09/30/17 08:45 Pulse Rate 71 09/30/17 17:17 Respiratory Rate 16 09/30/17 19:24 Blood Pressure 107/60 09/30/17 17:17 O2 Sat by Pulse Oximetry (%) 100 09/30/17 19:24 Constitutional: Yes: No Distress, Calm Eyes: Yes: Conjunctiva Clear, EOM Intact HENT: Yes: Atraumatic, Normocephalic Neck: Yes: Supple, Trachea Midline Cardiovascular: Yes: Regular Rate and Rhythm, S1, S2 Respiratory: Yes: Regular, CTA Bilaterally Gastrointestinal: Yes: Normal Bowel Sounds, Soft, Abdomen, Obese. No: Hepatomegaly, Splenomegaly Breast(s): Yes: WNL Extremities: No: Calf Tenderness Edema: No Peripheral Pulses WNL: Yes Neurological: Yes: Alert, Oriented Psychiatric: Yes: Alert, Oriented Labs: CBC, BMP 09/29/17 07:30 09/28/17 07:30 INR, PTT INR 1.14 (0.82-1.09) 09/27/17 10:00 Problem List - Problems (1) Gross hematuria Assessment/Plan: s/p cystoscopy, had biopsy today and now she receives CBI, the patient has no complaints Code(s): R31.0 - GROSS HEMATURIA (2) Orthostatic hypotension Assessment/Plan: continue iv fluids gentle hydration Code(s): I95.1 - ORTHOSTATIC HYPOTENSION (3) Other fall on same level, initial encounter Code(s): W18.39XA - OTHER FALL ON SAME LEVEL, INITIAL ENCOUNTER (4) HTN (hypertension) Assessment/Plan: continue Lisinopril discontinue Lasix Code(s): I10 - ESSENTIAL (PRIMARY) HYPERTENSION (5) Hypothyroidism Assessment/Plan: continue Synthroid Code(s): E03.9 - HYPOTHYROIDISM, UNSPECIFIED (6) UTI (urinary tract infection) Assessment/Plan: Ceftriaxone 1 gm iv daily Code(s): N39.0 - URINARY TRACT INFECTION, SITE NOT SPECIFIED Assessment/Plan 86 yo female admitted with gross hematuria, had today cystoscopy and bladder biopsy.She tolerated well the procedure. Ana Cristina hematuria cleared and now the patient will be kept for observation. She will be discharged in am if no complications/ I discussed with the son and answered all his questions.
[2017-09-30] MEDS: DEXTROSE 5%-0.45% SALINE 1,000 ML IV SCH (20:39)
[2017-09-30] MEDS: MIRTAZAPINE 15 MG TABLET (FP) PO SCH (21:39)
[2017-10-01] MEDS: LEVOTHYROXINE NA 50 MCG TABLET (FP) PO SCH (06:41)
[2017-10-01 08:36] LABS: BASO % 1.1 % (0-2.0); EOS % 2.9 % (0-4.5); MCH 27.2 pg (25.7-33.7); MCHC 32.2 g/dl (32.0-36.0); MEAN CELL VOLUME 84.5 fl (80-96); MEAN PLT VOLUME 9.3 fl (7.5-11.1); NEUT % 84.2 % (42.8-82.8); PLATELET COUNT 408 K/MM3 (134-434); RDW 15.6 % (11.6-15.6)
[2017-10-01 08:39] LABS: ALBUMIN 2.3 g/dl (3.5-5.0); ALK PHOS 54 U/L (32-92); ANION GAP 6 (8-16); BILIRUBIN,TOTAL 0.4 mg/dl (0.2-1.0); CO2 22 mmol/L (22-28); CREATININE 1.2 mg/dl (0.6-1.3); GLUCOSE,RANDOM 102 mg/dl (74-106); SGOT/AST 9 U/L (10-42)
[2017-10-01 08:43] LABS: SGPT/ALT 2 U/L (10-40)
--- NOTE | 2017-10-01 10:35 | OP ---
DATE OF OPERATION: 09/30/2017 PREOPERATIVE DIAGNOSIS: Gross hematuria. POSTOPERATIVE DIAGNOSIS: Gross hematuria. PROCEDURE: Cystoscopy and bladder biopsy. ANESTHESIA: IV sedation, Dr. Berlin Acuña with local anesthesia. FINDINGS: Erythematous bladder. SPECIMEN: Bladder biopsy. DRAINS: A 20-Lao 3-way Zamora catheter. PREOPERATIVE INDICATIONS: The patient is an 86-year-old female who was admitted with gross hematuria. CT scan was unremarkable. The patient comes for cystoscopy. DESCRIPTION OF PROCEDURE: The patient was brought to the OR. Placed on the table in the supine position. Given IV sedation and IV antibiotics. Placed in the modified lithotomy position. The groin was prepped and draped sterilely. A time-out was performed. Of note, the patient has a grade 4 cystocele and a urethral caruncle. Otherwise, her uterus is a bit distended within the vaginal vault and no obvious rectocele. Local anesthesia was infused per urethra. Cystoscopy was performed. Again, the aforementioned urethral caruncle was seen. The bladder itself had trabeculations and small cellules throughout with a longstanding outlet obstruction likely from her grade 4 cystocele. Both UOs were visualized with clear efflux. There was a generalized erythema throughout the bladder. A cold cup biopsy was performed. It was then fulgurated using the loop. Good hemostasis was maintained throughout. Cold cup biopsy was done just posterior to the trigone. Zamora catheter was then replaced, and the patient was woken up. Martha [id number]
[2017-10-01] MEDS: METOPROLOL SUCCINATE 25 MG TAB.SR.24H (FP) PO SCH (11:18)
[2017-10-01] MEDS: FERROUS SO4 325 MG TABLET (FP) PO SCH (11:18)
[2017-10-01] MEDS: MULTIVITAMINS (DAILY MVI) TABLET (FP) PO SCH (11:18)
[2017-10-01] MEDS: CEFTRIAXONE 1 G/50 ML PREMIX 50 ML IVPB SCH (11:18)
[2017-10-01] MEDS: ALPRAZolam 0.25 MG TABLET PO PRN ×2 (15:15→20:11)
[2017-10-01] MEDS ORDERED: LORazepam 2 MG/ML SDV VIAL ONE (15:29)
[2017-10-01] MEDS ORDERED: LORazepam 2 MG/ML SDV VIAL IVPUSH ONE (15:35)
[2017-10-01] MEDS ORDERED: MELATONIN 5 MG TABLETS PO PRN (18:16)
--- NOTE | 2017-10-01 18:27 | PN ---
Progress Note, Physician Chief Complaint: The patient is, S/p cystoscopy. She tolerated the procedure well, and now she is alert and oriented and hungry but refusing out food. She sleeps well at night , has sundown in the afternoon, and is weak with ambulation. - Current Medication List Current Medications: Active Medications Fentanyl (Sublimaze Injection -) 25 mcg IVPUSH [id number] PRN PRN Reason: PAIN Ferrous Sulfate (Feosol -) 325 mg PO DAILY [facility], [facility]–1983 Last Admin: 10/01/17 11:18 Dose: 325 mg Dextrose/Sodium Chloride (D5-1/2ns -) 1,000 mls @ 42 mls/hr IV ASDIR [facility], 1928–1983 Last Admin: 09/30/17 20:39 Dose: 42 mls/hr CEFTRIAXONE 1 G/50 ML PREMIX (Ceftriaxone 1 Gm-D5w Bag) 50 mls @ 100 mls/hr IVPB DAILY [facility], 1928–1983 Last Admin: 10/01/17 11:18 Dose: 100 mls/hr Levothyroxine Sodium (Synthroid -) 50 mcg PO DAILY@0700 [facility], 1928–1983 Last Admin: 10/01/17 06:41 Dose: 50 mcg Melatonin (Melatonin) 10 mg PO HS PRN PRN Reason: INSOMNIA Metoprolol Succinate (Toprol Xl -) 25 mg PO DAILY [facility], 1928–1983 Last Admin: 10/01/17 11:18 Dose: 25 mg Mirtazapine (Remeron -) 7.5 mg PO HS [facility], 1928–1983 Last Admin: 09/30/17 21:39 Dose: 7.5 mg Multivitamins/Minerals/Vitamin C (Tab-A-Vit -) 1 tab PO DAILY [facility], 1928[facility]1983 Last Admin: 10/01/17 11:18 Dose: 1 tab Ondansetron HCl (Zofran Injection) 4 mg IVPUSH Q6H PRN PRN Reason: NAUSEA AND/OR VOMITING Promethazine HCl (Phenergan Injection -) 12.5 mg IVPUSH Q6H PRN PRN Reason: NAUSEA-FOR RESCUE AFTER 15 MIN - Objective Vital Signs: Vital Signs Temperature 98.1 F 10/01/17 17:34 Pulse Rate 82 10/01/17 17:34 Respiratory Rate 19 10/01/17 17:34 Blood Pressure 111/65 10/01/17 17:34 O2 Sat by Pulse Oximetry (%) 100 10/01/17 17:34 Constitutional: Yes: No Distress, Anxious Eyes: Yes: Conjunctiva Clear, EOM Intact HENT: Yes: Atraumatic, Normocephalic Neck: Yes: Supple, Trachea Midline Cardiovascular: Yes: Regular Rate and Rhythm Respiratory: Yes: Regular, CTA Bilaterally Gastrointestinal: Yes: Normal Bowel Sounds, Soft Musculoskeletal: Yes: Back Pain Extremities: No: Calf Tenderness Edema: No Peripheral Pulses WNL: Yes Neurological: Yes: Alert, Oriented (for time, person and place) Psychiatric: Yes: Alert, Oriented Labs: CBC, BMP 10/01/17 08:10 10/01/17 08:10 INR, PTT INR 1.14 (0.82-1.09) 09/27/17 10:00 Problem List - Problems (1) Gross hematuria Code(s): R31.0 - GROSS HEMATURIA (2) Orthostatic hypotension Code(s): I95.1 - ORTHOSTATIC HYPOTENSION (3) Other fall on same level, initial encounter Code(s): W18.39XA - OTHER FALL ON SAME LEVEL, INITIAL ENCOUNTER (4) HTN (hypertension) Code(s): I10 - ESSENTIAL (PRIMARY) HYPERTENSION (5) Hypothyroidism Code(s): E03.9 - HYPOTHYROIDISM, UNSPECIFIED (6) UTI (urinary tract infection) Code(s): N39.0 - URINARY TRACT INFECTION, SITE NOT SPECIFIED
[2017-10-01] MEDS: MIRTAZAPINE 15 MG TABLET (FP) PO SCH (21:31)
[2017-10-02] MEDS: METOPROLOL SUCCINATE 25 MG TAB.SR.24H (FP) PO SCH ×2 (10:00→10:29)
[2017-10-02] MEDS: MULTIVITAMINS (DAILY MVI) TABLET (FP) PO SCH ×2 (10:10→10:29)
[2017-10-02] MEDS: CEFTRIAXONE 1 G/50 ML PREMIX 50 ML IVPB SCH (10:28)
[2017-10-02] MEDS: ALPRAZolam 0.25 MG TABLET PO PRN ×2 (10:29→21:32)
[2017-10-02] MEDS: FERROUS SO4 325 MG TABLET (FP) PO SCH ×2 (10:29→10:31)
--- NOTE | 2017-10-02 17:41 | PN ---
Progress Note, Physician Chief Complaint: The patient is, S/p cystoscopy. She tolerated the procedure well, and now she is alert and oriented and hungry but refusing out food. She sleeps well at night , has sundown in the afternoon, and is weak with ambulation. - Current Medication List Current Medications: Active Medications Alprazolam (Xanax -) 0.5 mg PO Q8H PRN Last Admin: 10/02/17 10:29 Dose: 0.5 mg Fentanyl (Sublimaze Injection -) 25 mcg IVPUSH [id number] PRN PRN Reason: PAIN Ferrous Sulfate (Feosol -) 325 mg PO DAILY [facility] Last Admin: 10/02/17 10:31 Dose: Not Given CEFTRIAXONE 1 G/50 ML PREMIX (Ceftriaxone 1 Gm-D5w Bag) 50 mls @ 100 mls/hr IVPB DAILY [facility] Last Admin: 10/02/17 10:28 Dose: 100 mls/hr Levothyroxine Sodium (Synthroid -) 50 mcg PO DAILY@0700 [facility] Last Admin: 10/01/17 06:41 Dose: 50 mcg Melatonin (Melatonin) 10 mg PO HS PRN PRN Reason: INSOMNIA Metoprolol Succinate (Toprol Xl -) 25 mg PO DAILY [facility] Last Admin: 10/02/17 10:00 Dose: Not Given Mirtazapine (Remeron -) 7.5 mg PO HS [facility] Last Admin: 10/01/17 21:31 Dose: 7.5 mg Multivitamins/Minerals/Vitamin C (Tab-A-Vit -) 1 tab PO DAILY [facility] Last Admin: 10/02/17 10:10 Dose: Not Given Ondansetron HCl (Zofran Injection) 4 mg IVPUSH Q6H PRN PRN Reason: NAUSEA AND/OR VOMITING Promethazine HCl (Phenergan Injection -) 12.5 mg IVPUSH Q6H PRN PRN Reason: NAUSEA-FOR RESCUE AFTER 15 MIN - Objective Vital Signs: Vital Signs Temperature 97.6 F 10/02/17 06:10 Pulse Rate 65 10/02/17 06:10 Respiratory Rate 18 10/02/17 06:10 Blood Pressure 115/72 10/02/17 06:10 O2 Sat by Pulse Oximetry (%) 94 L 10/02/17 06:10 Constitutional: Yes: No Distress, Calm Eyes: Yes: Conjunctiva Clear, EOM Intact HENT: Yes: Atraumatic, Normocephalic Neck: Yes: Supple, Trachea Midline Cardiovascular: Yes: Regular Rate and Rhythm, S1, S2 Respiratory: Yes: Regular, CTA Bilaterally Gastrointestinal: Yes: Normal Bowel Sounds, Soft ...Rectal Exam: Yes: Sphincter Tone Poor, Other (incontinent) Breast(s): Yes: WNL Musculoskeletal: Yes: WNL Extremities: Yes: WNL Edema: No Peripheral Pulses WNL: Yes Integumentary: Yes: Other (pale skin) Wound/Incision: Yes: Clean/Dry Neurological: Yes: Alert, Oriented Psychiatric: Yes: Alert, Oriented Labs: CBC, BMP 10/01/17 08:10 10/01/17 08:10 INR, PTT INR 1.14 (0.82-1.09) 09/27/17 10:00 Problem List - Problems (1) Gross hematuria Assessment/Plan: s/p cystoscopy, had biopsy CBI stopped, the patient has no complaints Code(s): R31.0 - GROSS HEMATURIA (2) Other fall on same level, initial encounter Code(s): W18.39XA - OTHER FALL ON SAME LEVEL, INITIAL ENCOUNTER (3) HTN (hypertension) Assessment/Plan: continue Lisinopril discontinue Lasix Code(s): I10 - ESSENTIAL (PRIMARY) HYPERTENSION (4) Hypothyroidism Assessment/Plan: continue Synthroid Code(s): E03.9 - HYPOTHYROIDISM, UNSPECIFIED (5) UTI (urinary tract infection) Assessment/Plan: Ceftriaxone 1 gm iv daily Code(s): N39.0 - URINARY TRACT INFECTION, SITE NOT SPECIFIED
[2017-10-02] MEDS: MIRTAZAPINE 15 MG TABLET (FP) PO SCH (21:33)
[2017-10-03 05:58] VITALS: BP 135/71; PULSE 85; TEMP 98.6
[2017-10-03] MEDS: LEVOTHYROXINE NA 50 MCG TABLET (FP) PO SCH (06:34)
[2017-10-03] MEDS: FERROUS SO4 325 MG TABLET (FP) PO SCH (09:35)
[2017-10-03] MEDS: CEFTRIAXONE 1 G/50 ML PREMIX 50 ML IVPB SCH (09:36)
[2017-10-03] MEDS: MULTIVITAMINS (DAILY MVI) TABLET (FP) PO SCH (09:36)
[2017-10-03] MEDS: METOPROLOL SUCCINATE 25 MG TAB.SR.24H (FP) PO SCH (09:36)
--- NOTE | 2017-10-04 10:11 | PATH ---
Surgical Pathology Report Patient Name: BRUNA MURRIETA Med. Rec. #: [id number] /Age/Gender: 1930 (Age: 86) / F Account: [id number] Location: [facility] MED-SURG Taken: 09/30/2017 Received: 09/30/2017 Reported: 10/04/2017 Physicians: Martha Núñez M.D. 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 NO CARCINOMA IDENTIFIED. Electronically Signed Jose Alfredo Lorenz M.D. Gross Description Received in formalin, labeled "bladder biopsy" is a orozco, irregular portion of soft tissue measuring 0.2 cm. in greatest dimension. The specimen is submitted in toto in one cassette. 10/03/201710/03/2017
== END 2017-10-03 11:40 | disposition home or self-care (01) | DRG 669 ==
LOC: FER 09:20 → FM/S 17:12
PROVIDERS: ADMIT Internal Medicine; ATTEND Internal Medicine
PROC: 0T5B8ZZ Destruction of Bladder, Via Natural or Artificial Opening Endoscopic (ICD-10-PCS; 2017-09-30)
PROC: 0TBB8ZX Excision of Bladder, Via Natural or Artificial Opening Endoscopic, Diagnostic (ICD-10-PCS; principal; 2017-09-30 07:30)
DX: N17.9 Acute kidney failure, unspecified (principal); N30.01 Acute cystitis with hematuria; F05 Delirium due to known physiological condition; N30.21 Other chronic cystitis with hematuria; I10 Essential (primary) hypertension; E03.9 Hypothyroidism, unspecified; I95.1 Orthostatic hypotension; N13.30 Unspecified hydronephrosis; N36.2 Urethral caruncle
CPT/HCPCS: 36415; 70450-TC; 71010-TC; 76775-TC; 76856-TC; 80053; 81003; 81015; 83735; 85025; 85610; 85730; 86850; 86900; 86901; 87086; 88305-TC; 93005; 94760; 97116-GP; 97162-GP; 99285-25

== ENCOUNTER 2018-03-25 15:33 | Emergency (ER) | payer BC, MEDICARE, OTHER ==
--- NOTE | 2018-03-25 15:36 | PDOC ---
History of Present Illness <Ronen Salazar - Last Filed: 03/25/18 18:41> - General History Source: Patient Exam Limitations: No Limitations - History of Present Illness Initial Comments: 03/25/18 16:28 The patient is a 87 year old female with a significant PMH of HTN, Hyothyroidism , Uterine Prolapse, Anxiety, Colon cancer s/p resection 1983, and breast cancer (s/p radiation) who presents to the emergency department for evaluation of constipation. The patient reports that she has been constipated for 2 days which is unusual for her. She states that she drank something OTC, can't recall the name, for her constipation with no relief. She denies any rectal pain or abdominal pain. Denies any weakness, fatigue or dizziness. The patient denies chest pain, shortness of breath, and headache. Denies fever, chills, nausea, vomit, diarrhea and constipation. Denies dysuria, frequency, urgency and hematuria. Allergies: NKA Past surgical history: None reported. Social history: No reported alcohol, drug, or cigarette use. PCP:Dr. Nj <Carina Santana - Last Filed: 03/25/18 18:46> - General Chief Complaint: Constipation Stated Complaint: CONSTIPATION Time Seen by Provider: 03/25/18 15:35 Past History - Past Medical History Cancer: Yes (BREAST CA,RADIATION,OLON) COPD: No GI Disorders: Yes Disorders: Yes (UTERINE PROLAPSE, CYSTOCELE) HTN: Yes Psychiatric Problems: Yes (ANXIETY) Seizures: Yes (HYPOTHYROID) - Surgical History Abdominal Surgery: Yes (TUMOR REMOVED, COLON RESECTION) - Suicide/Smoking/Psychosocial Hx Smoking History: Never smoked Have you smoked in the past 12 months: No Hx Alcohol Use: No Drug/Substance Use Hx: No Substance Use Type: Alcohol Hx Substance Use Treatment: No <Ronen Salazar - Last Filed: 03/25/18 18:41> <Carina Santana - Last Filed: 03/25/18 18:46> - Past Medical History Allergies/Adverse Reactions: Allergies Allergy/AdvReac Type Severity Reaction Status Date / Time No Known Allergies Allergy Verified 03/25/18 15:35 Home Medications: Ambulatory Orders Aspirin [ASA -] 81 mg PO DAILY #30 tab.chew 06/23/14 Alprazolam [Xanax] 0.25 mg PO BID 7 Days #14 tablet MDD 2 10/02/17 Levothyroxine [Synthroid -] 50 mcg PO DAILY@0700 tablet 10/02/17 Metoprolol Succinate [Toprol XL -] 25 mg PO DAILY tab.sr.24h 10/02/17 Multivitamins [Multivit ([facility] Formulary)] 1 tab PO DAILY 30 Days #30 tab Ascorbate Calcium [Vitamin C] 500 mg PO DAILY 03/25/18 Cyanocobalamin [Vitamin B12 -] 1,000 mcg PO DAILY 03/25/18 Furosemide [Lasix] 40 mg PO DAILY 03/25/18 Lisinopril 20 mg PO DAILY 03/25/18 Mirtazapine [Remeron -] 15 mg PO HS 03/25/18 Potassium Chloride 10 meq PO ASDIR 03/25/18 Review of Systems - Review of Systems Able to Perform ROS?: Yes Comments:: 03/25/18 16:30 ROS (+) Constipation Denies abdominal pain, rectal pain, weakness, fatigue, or dizziness. <Carina Santana - Last Filed: 03/25/18 18:46> *Physical Exam - Vital Signs Last Vital Signs Temp Pulse Resp BP Pulse Ox 98.3 F 62 18 124/80 95 03/25/18 15:36 03/25/18 15:36 03/25/18 15:36 03/25/18 15:36 03/25/18 15:36 - Physical Exam Comments: 03/25/18 16:31 GENERAL: (+) Alert and oriented to self and hospital with no acute pain but very concerned about her constipation. HEAD: Normal with no signs of trauma. EYES: Pupils equal, round and reactive to light, extraocular movements intact, sclera anicteric, conjunctiva clear. LUNGS: Breath sounds equal, clear to auscultation bilaterally. No wheezes, and no crackles. HEART: Regular rate and rhythm, normal S1 and S2 without murmur, rub or gallop. ABDOMEN: Soft, nontender, normoactive bowel sounds. No guarding, no rebound. No masses. RECTUM: (+) External hemorrhoids with no bleeding. (+) Large amount of soft stool. EXTREMITIES: Normal range of motion, no edema. NEUROLOGICAL: Normal speech, normal gait. PSYCH: Normal mood, normal affect. SKIN: Warm, Dry, normal turgor, no rashes or lesions noted. = <Carina Santana - Last Filed: 03/25/18 18:46> ED Treatment Course - LABORATORY CBC & Chemistry Diagram: 03/25/18 16:34 03/25/18 16:34 <MarieRonen Lester - Last Filed: 03/25/18 18:41> - LABORATORY CBC & Chemistry Diagram: 03/25/18 16:34 03/25/18 16:34 <Carina Santana - Last Filed: 03/25/18 18:46> Medical Decision Making - Medical Decision Making 03/25/18 18:41 87-year-old female with history of dementia presents to the emergency department from the [facility]. She has been unable to have a bowel movement for 2 days and is complaining of pressure in her rectal area. There is no abdominal pain, nausea, vomiting or fever. Patient is requesting a laxative to help her have a bowel movement. On examination, the abdomen is soft and nontender without distention. Rectal examination reveals a large quantity of soft brown stool in the rectal vault. Abdominal x-ray shows feces in the rectal vault, but no signs of obstruction. Laboratory studies reviewed. White blood cell count is normal and there are no other significant findings. Patient given saline enema with good results. She had a large bowel movement in the bathroom with the assistance of the nurse. She is feeling better and is stable for discharge back to the [facility]. She resides in the memory unit which has 24-hour care. Laboratory Results - last 24 hr 03/25/18 03/25/18 03/25/18 16:34 16:34 16:34 WBC 9.1 RBC 3.82 Hgb 10.4 L Hct 31.8 L MCV 83.3 MCH 27.1 MCHC 32.6 RDW 14.2 Plt Count 366 MPV 9.0 Absolute Neuts (auto) 7.2 Neutrophils % 78.5 Lymphocytes % 11.3 Monocytes % 7.9 Eosinophils % 1.6 Basophils % 0.7 Sodium 139 Potassium 4.9 Chloride 104 Carbon Dioxide 29 H D Anion Gap 6 L BUN 31 H Creatinine 1.1 Creat Clearance w eGFR 46.98 Random Glucose 81 D Calcium 8.5 Total Bilirubin 0.1 L D AST 11 D ALT 3 L D Alkaline Phosphatase 68 D Total Protein 6.1 L D Albumin 3.3 L D Stool Occult Blood Negative <Ronen Salazar - Last Filed: 03/25/18 18:41> *DC/Admit/Observation/Transfer - Discharge Dispostion Decision to Admit order: No - Attestations Physician Attestion: 03/25/18 18:45 The scribe's documentation has been prepared under my direction and personally reviewed by me in its entirety. I have confirmed that the note above accurately reflects all work, treatment, procedures, and medical decision- making performed by me. <Ronen Salazar - Last Filed: 03/25/18 18:41> - Attestations Scribe Attestion: 03/25/18 16:34 Documentation prepared by Carina Santana, acting as medical staff coordinator for Ronen Salazar MD. <Carina Santana - Last Filed: 03/25/18 18:46> Diagnosis at time of Disposition: Constipation Qualifiers: Constipation type: unspecified constipation type Qualified Code(s): K59.00 - Constipation, unspecified - Discharge Dispostion Disposition: HOME Condition at time of disposition: Fair - Referrals Referrals: Do Deleon MD [Primary Care Provider] - - Patient Instructions Printed Discharge Instructions: DI for Constipation Additional Instructions: Miss Rincon was evaluated today in the emergency department for constipation. Laboratory studies were normal. CBC and chemistries were unremarkable. Abdominal x-ray showed fecal material in the rectal vault but no obstruction. Rectal examination confirmed the same findings, soft, brown, heme-negative stool in the rectal vault, large quantity. Patient was given a saline enema with good results. She is feeling better and is [facility] Follow-up with Dr. Deleon. Return to the emergency department for any severe or progressive symptoms.
[2018-03-25 15:43] VITALS: BP 124/80; PULSE 62; TEMP 98.3
[2018-03-25 15:52] VITALS: BMI 24.3
[2018-03-25 17:33] LABS: BASO % 0.7 % (0-2.0); EOS % 1.6 % (0-4.5); HEMATOCRIT 31.8 % (32.4-45.2); HEMOGLOBIN 10.4 GM/dl (10.7-15.3); LYMPH % 11.3 % (8-40); MCH 27.1 pg (25.7-33.7); MCHC 32.6 g/dl (32.0-36.0); MEAN CELL VOLUME 83.3 fl (80-96); MONO % 7.9 % (3.8-10.2); NEUT % 78.5 % (42.8-82.8); PLATELET COUNT 366 K/MM3 (134-434); RBC 3.82 M/mm3 (3.60-5.2); RDW 14.2 % (11.6-15.6); WHITE BLOOD COUNT 9.1 K/mm3 (4.0-10.8)
[2018-03-25 17:41] LABS: ALBUMIN 3.3 g/dl (3.5-5.0); ALK PHOS 68 U/L (32-92); ANION GAP 6 (8-16); BILIRUBIN,TOTAL 0.1 mg/dl (0.2-1.0); BLOOD UREA NITROGEN 31 mg/dl (7-18); CALCIUM 8.5 mg/dl (8.4-10.2); CHLORIDE 104 mmol/L (98-107); CO2 29 mmol/L (22-28); CREATININE 1.1 mg/dl (0.6-1.3); GLUCOSE,RANDOM 81 mg/dl (74-106); POTASSIUM 4.9 mmol/L (3.5-5.1); SGOT/AST 11 U/L (10-42); SODIUM 139 mmol/L (136-145); TOT PROT 6.1 g/dl (6.4-8.3)
[2018-03-25 17:43] LABS: SGPT/ALT 3 U/L (10-40)
== END 2018-03-25 19:28 | disposition home or self-care (01) ==
LOC: FER 15:33 → SUPCPDRO 15:33 → FER 19:28
DX: K59.00 Constipation, unspecified (principal); F03.90 Unspecified dementia, unspecified severity, without behavioral disturbance, psychotic disturbance, mood disturbance, and anxiety; F41.9 Anxiety disorder, unspecified; E03.9 Hypothyroidism, unspecified; Z85.3 Personal history of malignant neoplasm of breast
CPT/HCPCS: 36415; 74019-TC-FY; 80053; 82272; 85025; 99282-25

== ENCOUNTER 2018-10-23 21:19 | Emergency (ER) | payer OTHER, MEDICARE ==
--- NOTE | 2018-10-23 21:48 | PDOC ---
History of Present Illness <Pattie Zhang - Last Filed: 10/23/18 22:25> - History of Present Illness Initial Comments: 10/23/18 23:16 The patient is an 87 year old female, with a significant past medical history of dementia, uterine prolapse, HTN, hypothyroidism, colon cancer (s/p resection in 1983), anxiety, and breast cancer, who presents to the emergency department today, from [facility], for abnormal potassium labs. Patients lab results were not sent with her to the ED. Patient denies any pain or symptoms at this time. Patients HPI is limited secondary to unwillingness to cooperate, and demands to go home. Per staff at [facility], the pt was sent for an elevated potassium level. They do not know what the level was. The patient denies chest pain, shortness of breath, headache and dizziness. Denies fever, chills, nausea, vomit, diarrhea and constipation. Denies dysuria, frequency, urgency and hematuria. Allergies: NKA Past surgical history: Colon resection Social history: No reported PCP: Dr. Carmona <Tirso Hall - Last Filed: 10/23/18 23:40> - General Chief Complaint: Revisit, Lab Variance Stated Complaint: LAB VARIANCE Time Seen by Provider: 10/23/18 21:21 Past History <Pattie Zhang - Last Filed: 10/23/18 22:25> - Past Medical History Cancer: Yes (BREAST CA,RADIATION,OLON) COPD: No DVT: No GI Disorders: Yes Disorders: Yes (UTERINE PROLAPSE, CYSTOCELE) HTN: Yes Psychiatric Problems: Yes (ANXIETY) Seizures: Yes (HYPOTHYROID) - Surgical History Abdominal Surgery: Yes (TUMOR REMOVED, COLON RESECTION) - Suicide/Smoking/Psychosocial Hx Smoking History: Never smoked Have you smoked in the past 12 months: No Hx Alcohol Use: No Drug/Substance Use Hx: No Substance Use Type: Alcohol Hx Substance Use Treatment: No <Tirso Hall - Last Filed: 10/23/18 23:40> - Past Medical History Allergies/Adverse Reactions: Allergies Allergy/AdvReac Type Severity Reaction Status Date / Time No Known Allergies Allergy Verified 03/25/18 15:35 Home Medications: Ambulatory Orders Aspirin [ASA -] 81 mg PO DAILY #30 tab.chew 06/23/14 Levothyroxine [Synthroid -] 50 mcg PO DAILY@0700 tablet 10/02/17 Multivitamins [Multivit ([facility] Formulary)] 1 tab PO DAILY 30 Days #30 tab Ascorbate Calcium [Vitamin C] 500 mg PO DAILY 03/25/18 Cyanocobalamin [Vitamin B12 -] 1,000 mcg PO DAILY 03/25/18 Mirtazapine [Remeron -] 15 mg PO HS 03/25/18 Potassium Chloride 10 meq PO ASDIR 03/25/18 Docusate Sodium [Colace] 100 mg PO HS 04/02/18 Cholecalciferol (Vitamin D3) [Vitamin D] 2,000 unit PO DAILY 10/23/18 Metoprolol Succinate [Toprol Xl] 25 mg PO DAILY 10/23/18 Review of Systems - Review of Systems Comments:: 10/23/18 23:19 GENERAL/CONSTITUTIONAL: No fever or chills. No weakness. HEAD, EYES, EARS, NOSE AND THROAT: No change in vision. No ear pain or discharge. No sore throat. GASTROINTESTINAL: No nausea, vomiting, diarrhea or constipation. GENITOURINARY: No dysuria, frequency, or change in urination. CARDIOVASCULAR: No chest pain or shortness of breath. RESPIRATORY: No cough, wheezing, or hemoptysis. MUSCULOSKELETAL: No joint or muscle swelling or pain. No neck or back pain. SKIN: No rash NEUROLOGIC: No headache, vertigo, loss of consciousness, or change in strength/ sensation. ENDOCRINE: No increased thirst. No abnormal weight change. HEMATOLOGIC/LYMPHATIC: No anemia, easy bleeding, or history of blood clots. ALLERGIC/IMMUNOLOGIC: No hives or skin allergy. <Tirso Hall - Last Filed: 10/23/18 23:40> *Physical Exam - Physical Exam Comments: 10/23/18 23:19 GENERAL: Awake, alert, oriented to name. Uncooperative but redirectable HEAD: No signs of trauma EYES: Sclera anicteric, conjunctiva clear ENT: Hearing grossly normal, nares patent, oropharynx clear without exudates. Moist mucosa NECK: Normal ROM, supple, no lymphadenopathy, JVD, or masses LUNGS: Breath sounds equal, clear to auscultation bilaterally. No wheezes, and no crackles HEART: Regular rate and rhythm, normal S1 and S2, no murmurs, rubs or gallops ABDOMEN: Soft, nontender, normoactive bowel sounds. No guarding, no rebound. No masses EXTREMITIES: Normal range of motion, no edema. No cords, erythema, or tenderness BACK: No midline spinal tenderness in cervical/thoracic/lumbar region NEUROLOGICAL: Normal speech, cranial nerves intact, moving all extremities. SKIN: Warm, Dry, normal turgor, no rashes or lesions noted. <Tirso Hall - Last Filed: 10/23/18 23:40> ED Treatment Course - LABORATORY CBC & Chemistry Diagram: 10/23/18 21:45 10/23/18 21:45 - ADDITIONAL ORDERS Additional order review: Laboratory Results 10/23/18 10/23/18 10/23/18 21:45 21:45 21:45 PT with INR 12.3 INR 1.10 PTT (Actin FS) 27.8 Sodium 135 L Potassium 5.1 Chloride 99 Carbon Dioxide 27 Anion Gap 9 BUN 26 H Creatinine 1.2 Creat Clearance w eGFR 42.50 Random Glucose 171 H D Calcium 8.3 L Magnesium 1.9 Total Bilirubin 0.5 AST 14 D ALT 6 L D Alkaline Phosphatase 78 Total Protein 5.7 L Albumin 3.2 L 10/23/18 21:45 RBC 3.87 MCV 84.9 MCHC 32.6 RDW 13.6 MPV 8.4 Neutrophils % 83.1 H Lymphocytes % 9.2 Monocytes % 6.1 Eosinophils % 1.1 Basophils % 0.5 <Pattie Zhang - Last Filed: 10/23/18 22:25> - LABORATORY CBC & Chemistry Diagram: 10/23/18 21:45 10/23/18 21:45 <Tirso Hall - Last Filed: 10/23/18 23:40> Medical Decision Making - Medical Decision Making 10/23/18 23:20 87yo F with MMP sent to the ED with reportedly elevated potassium. Labs rechecked here, potassium wnl. Remaining labs at baseline. Abnormal lab at [place] likely spurious. Pt is clinically well appearing. Vitals wnl. Stable for DC back to [place] <Tirso Hall - Last Filed: 10/23/18 23:40> *DC/Admit/Observation/Transfer - Attestations Scribe Attestion: Documentation prepared by NABOR Miramontes, acting as medical technicians for Tirso Hall MD. 10/23/18 22:25 <Pattie Zhang - Last Filed: 10/23/18 22:25> - Discharge Dispostion Decision to Admit order: No - Attestations Physician Attestion: 10/23/18 23:40 I, Dr. Tirso Hall MD, attest that this document has been prepared under my direction and personally reviewed by me in its entirety. I further attest, that it accurately reflects all work, treatment, procedures and medical decision -making performed by me. <Tirso Hall - Last Filed: 10/23/18 23:40> Diagnosis at time of Disposition: Abnormal laboratory test result - Discharge Dispostion Disposition: HOME Condition at time of disposition: Stable - Patient Instructions Additional Instructions: Follow up with your primary doctor within 2-3 days. Return to the emergency department if you have any new, worsening or concerning symptoms.
[2018-10-23 22:00] LABS: BASO % 0.5 % (0-2.0); EOS % 1.1 % (0-4.5); HEMATOCRIT 32.8 % (32.4-45.2); HEMOGLOBIN 10.7 GM/dl (10.7-15.3); LYMPH % 9.2 % (8-40); MCH 27.7 pg (25.7-33.7); MCHC 32.6 g/dl (32.0-36.0); MEAN CELL VOLUME 84.9 fl (80-96); MEAN PLT VOLUME 8.4 fl (7.5-11.1); MONO % 6.1 % (3.8-10.2); NEUT % 83.1 % (42.8-82.8); PLATELET COUNT 384 K/MM3 (134-434); RBC 3.87 M/mm3 (3.60-5.2); RDW 13.6 % (11.6-15.6); WHITE BLOOD COUNT 9.2 K/mm3 (4.0-10.8)
[2018-10-23 22:07] LABS: ACTIVATED PTT 27.8 SECONDS (25.2-36.5)
[2018-10-23 22:08] LABS: ALBUMIN 3.2 g/dl (3.5-5.0); ALK PHOS 78 U/L (32-92); ANION GAP 9 MMOL/L (8-16); BILIRUBIN,TOTAL 0.5 mg/dl (0.2-1.0); BLOOD UREA NITROGEN 26 mg/dl (7-18); CALCIUM 8.3 mg/dl (8.4-10.2); CHLORIDE 99 mmol/L (98-107); CO2 27 mmol/L (22-28); CREATININE 1.2 mg/dl (0.6-1.3); GLUCOSE,RANDOM 171 mg/dl (74-106); POTASSIUM 5.1 mmol/L (3.5-5.1); SGOT/AST 14 U/L (10-42); SGPT/ALT 6 U/L (10-40); SODIUM 135 mmol/L (136-145); TOT PROT 5.7 g/dl (6.4-8.3)
[2018-10-23 22:11] LABS: INR 1.1 (0.82-1.09); PROTHROMBIN TIME (PATIENT) 12.3 SEC (10.2-13.0)
[2018-10-23 23:35] VITALS: BP 142/68; PULSE 66; BMI 20.5
== END 2018-10-23 23:56 ==
LOC: FER 21:19
DX: E87.5 Hyperkalemia (principal); I10 Essential (primary) hypertension; E03.9 Hypothyroidism, unspecified; F03.90 Unspecified dementia, unspecified severity, without behavioral disturbance, psychotic disturbance, mood disturbance, and anxiety; F41.9 Anxiety disorder, unspecified; Z85.038 Personal history of other malignant neoplasm of large intestine; Z85.3 Personal history of malignant neoplasm of breast; Z92.3 Personal history of irradiation; Z79.82 Long term (current) use of aspirin
CPT/HCPCS: 36415; 80053; 83735; 85025; 85610; 85730; 99281-25